=== PATIENT | female | born 1965 | race Caucasian/White ===

== ENCOUNTER → 2020-12-13 15:27 | Outpatient (BNVA) | payer BC, SELFPAY | PROVIDERS: PCP Internal Medicine; Visit Provider Surgery ==

== ENCOUNTER 2021-01-11 10:37 | Outpatient (REF) | payer BC, SELFPAY ==
[2021-01-11 11:41] LABS: MANUAL DIFF FLAG NO
[2021-01-11 11:50] LABS: Basophils Percent Auto 0.5 % (0-2); Eosinophils Absolute Auto 0.1 X10*3/uL (0.0-0.4); Eosinophils Percent Auto 1.4 % (0-4); Hematocrit 39.3 % (37-47); Hemoglobin 12.2 g/dl (12.0-16.0); Imm Gran Abs Auto 0.01 X10*3/uL (0.00-0.03); Imm Gran Pct Auto 0.2 % (0.0-0.4); Lymphocytes Absolute Auto 1.8 X10*3/uL (1.2-4.9); Lymphocytes Percent Auto 31.6 % (20-40); Mean Corpuscular Hemoglobin 30.4 pg (27.0-33.0); Mean Platelet Volume 11.6 fL (9.4-12.3); Monocytes Absolute Auto 0.4 X10*3/uL (0.1-1.2); Monocytes Percent Auto 6.3 % (2-11); Neutrophils Absolute Auto 3.5 X10*3/uL (2.0-8.3); Platelet Count 255 X10*3/uL (160-400); Red Blood Count 4.01 X10*6/uL (4.20-5.50); Red Cell Distribution Width 13.7 % (11.0-16.0); White Blood Count 5.8 X10*3/uL (4.8-10.8)
[2021-01-11 12:27] LABS: Thyroid Stimulating Hormone 0.77 uIU/mL (0.32-4.0); Vitamin D 25-OH Total 43.6 ng/mL (>30)
[2021-01-11 12:31] LABS: Alanine Aminotransferase 7 U/L (0-31); Alkaline Phosphatase 96 U/L (39-117); Anion Gap 14 (12-20); Aspartate Amino Transferase 17 U/L (5-31); Bilirubin Total 0.5 mg/dL (0.0-1.0); Blood Urea Nitrogen 35 mg/dL (9-16); C Reactive Protein 0.74 mg/dL (< or = 0.50); Calcium 9.6 mg/dL (8.4-10.2); Carbon Dioxide 24 mmol/L (22-29); Chloride 107 mmol/L (96-108); Cholesterol 223 mg/dL; Estimated Glomerular Filt Rate 41; Glucose Fasting 90 mg/dL (60-99); HDL Cholesterol 45 mg/dL; Iron 77 mcg/dL (30-160); LDL Cholesterol Calculated 114 mg/dl; Percent Iron Saturation 24 % (15-50); Potassium 5.2 mmol/L (3.3-5.1); Sodium 140 mmol/L (135-145); Total Iron Binding Capacity 316 mcg/dL (228-428); Total Protein 7.4 g/dL (6.5-8.0); Triglycerides 324 mg/dL; Unsaturated Iron Binding 239 ug/dL
[2021-01-11 12:50] LABS: Estimated Average Glucose 91 mg/dL; Hemoglobin A1c % 4.8 %
[2021-01-11 12:58] LABS: Vitamin B12 721 pg/mL (200-900)
[2021-01-15 00:32] LABS: Zinc 111 mcg/dL (60-130)
[2021-01-15 11:37] LABS: Calcium (PTHI) 9.7 mg/dL (8.6-10.4); PTHI 35 pg/mL (14-64)
[2021-01-16 13:21] LABS: Vitamin A 80 mcg/dL (38-98)
[2021-01-18 12:46] LABS: Vitamin B1 26 nmol/L (8-30)
== END 2021-01-11 10:38 | disposition home or self-care (01) ==
LOC: HO.LAB 10:37
PROVIDERS: PCP Internal Medicine; Visit Provider Surgery
DX: Z01.818 Encounter for other preprocedural examination (principal); E66.3 Overweight; Z68.29 Body mass index [BMI] 29.0-29.9, adult; K91.2 Postsurgical malabsorption, not elsewhere classified; K56.609 Unspecified intestinal obstruction, unspecified as to partial versus complete obstruction; Z90.3 Acquired absence of stomach [part of]; Z98.84 Bariatric surgery status
CPT/HCPCS: 36415; 80053; 80061; 82306; 82607; 83036; 83540; 83970; 84425; 84443; 84590; 84630; 85025; 86140

== ENCOUNTER 2021-01-18 03:37 | Inpatient (IN) | payer BC, SELFPAY ==
[2021-01-18] VITALS (13 sets, daily range): BP systolic 109–151; BP diastolic 48–82; PULSE 56–81; RESP 16–20; TEMP 36–37; O2SAT 97–100; BMI 29.0
--- NOTE | 2021-01-18 04:07 | ED_ITS ---
HPI - General Adult General Chief complaint: General Medical Stated complaint: SURGERY COMPLICATIONS Time Seen by Provider: 01/18/21 04:00 Source: patient Mode of arrival: EMS Limitations: no limitations History of Present Illness HPI narrative: Patient is being transferred from [facility] for a small- bowel obstruction. Earlier this afternoon, I spoke with Dr. Acosta who took care of the patient, at [facility]. Mrs. Christianson is a patient of Dr. Cerna, who presented at local hospital complaining of diffuse abdominal pain. Patient has been diagnosed with a small-bowel obstruction, patient has krishna d 3 in total. Patient has history of gastric bypass surgery on 02/29/2020. It is suspected that the patient may have a hernia which is causing the small-bowel obstructions. Patient is scheduled for surgery this morning. I spoke to Dr. Cerna this evening, recommended to have the patient transferred to our facility for surgery this morning, repeat labs, no further imaging necessary. I accepted the ER to ER transfer. Patient states that at this moment, the pain is getting worse. Related Data Home Medications Medication Instructions Recorded Confirmed cetirizine 10 mg tablet 10 mg PO BEDTIME 12/13/20 01/11/21 docusate sodium 100 mg capsule 100 mg PO BID 12/13/20 01/11/21 fluconazole 150 mg tablet 150 mg PO PRN tab 12/13/20 01/11/21 gabapentin 300 mg capsule 300 mg PO BID 12/13/20 01/11/21 lisinopril 10 mg tablet 10 mg PO DAILY 12/13/20 01/11/21 polyethylene glycol 3350 17 17 g PO DAILY PRN 12/13/20 01/11/21 gram/dose oral powder propranolol 20 mg tablet 20 mg PO BID 12/13/20 01/11/21 tizanidine 4 mg tablet 4 mg PO BEDTIME 12/13/20 01/11/21 topiramate 50 mg tablet 50 mg PO BID 12/13/20 01/11/21 Allergies Allergy/AdvReac Type Severity Reaction Status Date / Time NSAIDS (Non-Steroidal Allergy Intermediate CANNOT USE Verified 01/11/21 12:45 Anti-Inflamma DUE TO [NSAIDS (NON-STEROIDAL GASTRIC ANTI-INFLAMMA] BYPASS SURGERY Review of Systems Review of Systems: Constitutional : No Weight loss, No Fever, No Chills, No Night Sweats, No Fatigue, No Malaise ENT/Mouth : No Hearing loss, No Ear Pain, No Nasal Congestion, No Sinus Pain, No Hoarseness, No sore throat, No Rhinorrhea, No Swallowing Difficulty Eyes: No Eye Pain, No Swelling, No Redness, No Foreign Body, No Discharge, No Vision Changes Cardiovascular : No Chest Pain, No SOB, No Dyspnea on Exertion, No Orthopnea, No Edema, No Palpitations Respiratory : No Cough, No Sputum, No Wheezing, No Smoke Exposure, No Dyspnea Gastrointestinal : Complaining of nausea, no vomiting or diarrhea, complaining of severe diffuse abdominal pain Genitourinary : no irregular bleeding, No Dysuria, No Urinary Frequency, No Hematuria, No Urinary Incontinence, No Urgency, No Flank Pain, No Urinary Flow Changes, No Hesitancy Musculoskeletal : No joint pain, No Myalgias, No Joint Swelling Skin : No Skin Lesions, No rash Neuro : No Weakness, No Numbness, No Paresthesias, No Loss of Consciousness, No Dizziness, No Headache Psych : No Anxiety/Panic, No Depression, No SI/HI/AH/VH, No Social Issues, Heme/Lymph: No Bruising, No Bleeding,No Lymphadenopathy Endocrine : No Polyuria, No Polydipsia, No Temperature Intolerance PMFSH Past Medical History Medical History BMI 29.0-29.9,adult Constipation Intermittent small bowel obstruction Malabsorption due to intolerance, not elsewhere classified Migraine headache Overweight (BMI 25.0-29.9) Polycystic kidney disease Surgical History History of gastric restrictive surgery History of knee replacement History of laparoscopic cholecystectomy History of release of tendon Hx of section S/P gastric bypass S/P laparoscopic sleeve gastrectomy Family History Family History Father Pre-diabetes Mother Polycystic kidney Kidney transplanted Sister Heart attack Brother Polycystic kidney Brother Heart problem Son No problems noted. Son Diabetes mellitus Social History Social History Alcohol intake: never Smoking Status: Never smoker Advance Directives: No Advance Directives Information Provided: No Physical Exam Vital Signs: Vital Signs: Last Vital Signs Temp 98 F 01/18/21 03:51 Pulse 60 01/18/21 03:51 Resp 16 01/18/21 03:51 BP 109/48 L 01/18/21 03:51 Pulse Ox 99 01/18/21 03:51 Body Mass Index 29.0 Appearance: Alert. Oriented X3. Mild distress due to pain Eyes: Pupils equal, round and reactive to light. ENT: Pharynx normal. Neck: Normal inspection. Neck supple. No lymph nodes noted. No crepitus CVS: Normal heart rate and rhythm. Pulses normal. Normal S1 and S2 Respiratory: No respiratory distress. Breath sounds normal. No Wheezing. No rales Abdomen: Soft distended, diffusely tender, guarding, no rebound Skin: Skin warm and dry. Normal skin color. Normal skin turgor. Extremities: No lower extremity edema.No Lacerations. No Rash Neuro: Oriented X 3. No motor deficit. No sensory deficit. Moving all extermities. No slurred speech. Course Course Course Narrative: Patient's labs from [facility] were sent to us, stable. We are repeating blood work for this morning's surgery. I spoke to bariatric surgeon on-call, KANDACE Lei, patient being admitted. Medical Decision Making Lab Data Result diagrams: 01/18/21 04:41 01/18/21 04:40 Labs: Lab Results 01/18/21 01/18/21 01/18/21 Range/Units 04:40 04:41 04:41 WBC 5.6 (4.8-10.8) X10*3/uL RBC 3.26 L (4.20-5.50) X10*6/uL Hgb 10.0 L (12.0-16.0) g/dl Hct 31.6 L (37-47) % MCV 96.9 (80-98) fL MCH 30.7 (27.0-33.0) pg MCHC 31.6 (31.0-35.0) g/dl RDW 13.9 (11.0-16.0) % Plt Count 130 L D (160-400) X10*3/uL MPV 11.1 (9.4-12.3) fL Immature Gran % (Auto) 0.2 (0.0-0.4) % Neut % (Auto) 55.0 (45-73) % Lymph % (Auto) 37.2 (20-40) % Millard % (Auto) 6.1 (2-11) % Eos % (Auto) 1.1 (0-4) % Baso % (Auto) 0.4 (0-2) % Lymph # (Auto) 2.1 (1.2-4.9) X10*3/uL Millard # (Auto) 0.3 (0.1-1.2) X10*3/uL Eos # (Auto) 0.1 (0.0-0.4) X10*3/uL Baso # (Auto) 0.0 (0.0-0.2) X10*3/uL Abs Immat Gran (auto) 0.01 (0.00-0.03) X10*3/uL Absolute Neuts (auto) 3.1 (2.0-8.3) X10*3/uL Absolute Nucleated RBC 0.000 (0.0-0.012) X10*3/uL Nucleated RBC % (auto) 0.0 (0.0-0.2) /100WBC Smear Tech's Comments VERIFIED PT 13.0 (10.8-13.0) SEC INR 1.1 (0.9-1.1) APTT 33.8 (24.1-38.0) SEC ECG Data Attestation: I personally reviewed and interpreted this ECG as follows: (Sinus rhythm, heart rate 57, no ST segment depression or elevation, no T-wave inversion) Discharge Plan Discharge Clinical Impression: SBO (small bowel obstruction) Patient Disposition: Admitted As Inpatient
--- NOTE | 2021-01-18 04:15 | ECG_ITS ---
Test Reason : SURGERY Blood Pressure : / mmHG Vent. Rate : 057 BPM Atrial Rate : 059 BPM P-R Int : 000 ms QRS Dur : 078 ms QT Int : 474 ms P-R-T Axes : 000 017 018 degrees QTc Int : 461 ms Normal sinus rhythm Low amplitude p waves Low voltage QRS Abnormal ECG When compared to the previous EKG of No significant changes seen Referred By: Nydia Flores Electronically Signed By:ELI VERDUGO MD
[2021-01-18] MEDS: 0.9 % Sodium Chloride 1,000 ML 999 ML IVCONT (04:21)
[2021-01-18] MEDS: ondansetron HCL 4 MG/2 ML VIAL IVPUSH ×2 (04:21→17:15)
[2021-01-18] MEDS: HYDROmorphone HCl 1 MG/ML SYRINGE IVPUSH (04:21)
--- NOTE | 2021-01-18 04:47 | PM.HPGS ---
History of Present Illness History of Present Illness Date of Service: 01/18/21 Chief complaint: SURGERY COMPLICATIONS Narrative: Lucila Christianson is a 55 year old female who is s/p revision of RNYGBP by Dr Cerna in February 2020, her origianl RNYGBP was done in 2013 elsewhere. Pt had been having an uncomplicated post op course until earlier this month when she began to have intermittent abd pain and was hospitalized twice in [facility] for SBO's that resolved on their own. she was seen in the [facility] office for followup and scheduled for elective laparoscopic exploration on January 30 for probable internal hernia. Patient called the office from her home in [place] today stating she had the same symptoms. Abd pain started suddenly at 1:30 pm with an episode of emesis ox 1. No Bm's x 2 days and no flatus per patient. She arrived at ED close to her home in [place], was stabilized and brought to [facility] ED for admission. She is scheduled for OR today with Dr Cerna. Review of Systems ENT: Denies dysphagia Gastrointestinal: Gastrointestinal: Reports as per HPI, Reports abdominal pain, Reports belching, Denies coffee ground emesis, Denies dysphagia, Denies nausea, Reports vomiting (x 1) and Denies hematemesis PMFSH Past Medical History Medical History BMI 29.0-29.9,adult Constipation Intermittent small bowel obstruction Malabsorption due to intolerance, not elsewhere classified Migraine headache Overweight (BMI 25.0-29.9) Polycystic kidney disease Family History Family History Father Pre-diabetes Mother Polycystic kidney Kidney transplanted Sister Heart attack Brother Polycystic kidney Brother Heart problem Son No problems noted. Son Diabetes mellitus Surgical History Surgical History History of gastric restrictive surgery History of knee replacement History of laparoscopic cholecystectomy History of release of tendon Hx of section S/P gastric bypass S/P laparoscopic sleeve gastrectomy Social History Social History Alcohol intake: never Smoking Status: Never smoker Advance Directives: No Advance Directives Information Provided: No Meds Allergies Allergy/AdvReac Type Severity Reaction Status Date / Time NSAIDS (Non-Steroidal Allergy Intermediate CANNOT USE Verified 01/11/21 12:45 Anti-Inflamma DUE TO [NSAIDS (NON-STEROIDAL GASTRIC ANTI-INFLAMMA] BYPASS SURGERY Active Medications: Current Medications Generic Name Dose Route Start Last Admin Trade Name Freq PRN Reason Stop Dose Admin Sodium Chloride 1,000 mls @ 999 mls/hr 01/18/21 04:11 01/18/21 04:21 Ns IVCONT 01/18/21 05:11 999 mls/hr .Q1H1M ONE Administration Home Medications Medication Instructions Recorded Confirmed Last Taken Type cetirizine 10 mg tablet 10 mg PO BEDTIME 12/13/20 01/11/21 Unknown History docusate sodium 100 mg capsule 100 mg PO BID 12/13/20 01/11/21 Unknown History fluconazole 150 mg tablet 150 mg PO PRN tab 12/13/20 01/11/21 Unknown History gabapentin 300 mg capsule 300 mg PO BID 12/13/20 01/11/21 Unknown History lisinopril 10 mg tablet 10 mg PO DAILY 12/13/20 01/11/21 Unknown History polyethylene glycol 3350 17 17 g PO DAILY PRN 12/13/20 01/11/21 Unknown History gram/dose oral powder propranolol 20 mg tablet 20 mg PO BID 12/13/20 01/11/21 Unknown History tizanidine 4 mg tablet 4 mg PO BEDTIME 12/13/20 01/11/21 Unknown History topiramate 50 mg tablet 50 mg PO BID 12/13/20 01/11/21 Unknown History Physical Exam Vital Signs: Vital Signs: Last Vital Signs Temp 98 F 01/18/21 03:51 Pulse 60 01/18/21 03:51 Resp 16 01/18/21 03:51 BP 109/48 L 01/18/21 03:51 Pulse Ox 99 01/18/21 03:51 Body Mass Index 29.[address] scan report/results: report reviewed (CT abd done previously have been reviewed br Dr Cerna) Assessment and Plan (1) Intermittent small bowel obstruction: Status: Acute (2) S/P gastric bypass: Problem details: 2013 Status: Acute (3) Malabsorption due to intolerance, not elsewhere classified: Status: Acute (4) Hx of migraines: Status: Acute (5) BMI 29.0-29.9,adult: Status: Acute 55 yo woman s/p revision of GBP February 2020 is being admitted fro intermittent small bowel obstruction likely from internal hernia. She will be NPO on admission and will go to OR today. Labs drawn in ED and cefotetan ordered pre op. Dr Cerna is aware.
[2021-01-18 04:51] LABS: Imm Gran Abs Auto 0.01 X10*3/uL (0.00-0.03); Imm Gran Pct Auto 0.2 % (0.0-0.4); MANUAL DIFF FLAG SCAN; Mean Platelet Volume 11.1 fL (9.4-12.3); PLT CLUMP 1; SCAN SMEAR FLAG 1
[2021-01-18 04:53] LABS: Basophils Percent Auto 0.4 % (0-2); Eosinophils Absolute Auto 0.1 X10*3/uL (0.0-0.4); Eosinophils Percent Auto 1.1 % (0-4); Hematocrit 31.6 % (37-47); Lymphocytes Absolute Auto 2.1 X10*3/uL (1.2-4.9); Lymphocytes Percent Auto 37.2 % (20-40); Mean Corpuscular HGB Conc 31.6 g/dl (31.0-35.0); Mean Corpuscular Hemoglobin 30.7 pg (27.0-33.0); Mean Corpuscular Volume 96.9 fL (80-98); Monocytes Absolute Auto 0.3 X10*3/uL (0.1-1.2); Monocytes Percent Auto 6.1 % (2-11); Neutrophils Absolute Auto 3.1 X10*3/uL (2.0-8.3); Platelet Count 130 X10*3/uL (160-400); Red Blood Count 3.26 X10*6/uL (4.20-5.50); Red Cell Distribution Width 13.9 % (11.0-16.0); White Blood Count 5.6 X10*3/uL (4.8-10.8)
[2021-01-18 04:55] LABS: SLIDE REVIEW VERIFIED
[2021-01-18 04:57] LABS: INTERNATIONAL NORM RATIO 1.1 (0.9-1.1)
[2021-01-18 04:59] LABS: Partial Thromboplastin Time 33.8 SEC (24.1-38.0)
[2021-01-18 05:09] LABS: Lactic Acid 1.4 mmol/L (0.5-2.0)
[2021-01-18 05:14] LABS: Alanine Aminotransferase 6 U/L (0-31); Albumin Level 3.5 g/dL (3.5-5.0); Alkaline Phosphatase 86 U/L (39-117); Anion Gap 12 (12-20); Aspartate Amino Transferase 18 U/L (5-31); Bilirubin Direct < 0.2 mg/dL (0.0-0.5); Bilirubin Total 0.4 mg/dL (0.0-1.0); Blood Urea Nitrogen 28 mg/dL (9-16); Calcium 8.9 mg/dL (8.4-10.2); Carbon Dioxide 23 mmol/L (22-29); Chloride 109 mmol/L (96-108); Creatinine Clr Calc Pharmacy 57.2; Estimated Glomerular Filt Rate 48; Glucose Random 93 mg/dL (60-115); Potassium 4.4 mmol/L (3.3-5.1); Sodium 140 mmol/L (135-145); Total Protein 6.3 g/dL (6.5-8.0)
[2021-01-18] MEDS: Lactated Ringers 1,000 ML 125 ML IVCONT ×2 (05:39→18:01)
[2021-01-18] MEDS: HYDROmorphone HCl 0.5 MG/0.5 ML SYRINGE 0.25 MG IVPUSH ×2 (05:39→15:22)
[2021-01-18] MEDS: cefoTEtan disodium 2 GM in 0.9 % Sodium Chloride 50 ML IV (06:07)
--- NOTE | 2021-01-18 06:22 | PC.NURSE ---
REPORT GIVEN TO [facility]. PT TO FLOOR AT THIS TIME. LR UP AND RUNNING ON PUMP. HL REMOVED FROM LEFT AC AND REPLACED TO RIGHT FA. PT MEDICATED FOR PAIN RATED 8/10. PT AWAITING TRANSFER TO FLOOR ON STRETCHER.
[2021-01-18 06:53] LABS: COVID-19 Test Negative (Negative); IDNOW Serial# 9DD0AD1C
[2021-01-18] MEDS: Pantoprazole Sodium 40 MG/10 ML VIAL IVPUSH ×2 (07:26→20:55)
[2021-01-18 07:45] LABS: Lactic Acid 0.9 mmol/L (0.5-2.0)
--- NOTE | 2021-01-18 09:09 | PM.HPGS ---
History of Present Illness History of Present Illness Date of Service: 01/18/21 Chief complaint: ABDOMIANAL PAIN Narrative: Lucila Christianson is a 55 year old female who has a history of gastric bypass done at [facility] in 2004. I did a revision of her gastric bypass 02/29/2020 when she was noted to have a very large gastric pouch and had gained a significant amount of weight. Patient has since then lost 81 lb. Patient reports 2 prior episodes of hospitalization for small-bowel obstructions in December of 2020. First admission was 12/21/2020 and she was admitted to [facility] in [place] and underwent conservative management for her bowel obstruction with NPO and IV fluids and eventually advancing her diet. Patient was discharged but about 4 days later she re-presented to [facility] with similar symptoms. This time she was transferred out to [facility] again the CT scan showed small bowel obstruction and she was treated conservatively for 5 days. Her diet was advanced and she was again discharged home. Patient followed up in our office and the plan was for her to see me next week to do a diagnostic laparoscopy to evaluate for internal hernia given her history of gastric bypass and 80 lb weight loss in less than 1 year after revision of her gastric bypass. Patient reports yesterday after eating chicken noodle soup she developed severe umbilical pain greater than 10/10 in the periumbilical region. She denies any exacerbating or alleviating factors. She reports the pain radiates to the left lower quadrant. Patient reports she also tried chicken noodle soup once again last night at 18:00 and threw that up. Again she went to [facility] once again although she was told to come to [facility] for evaluation. Patient was transferred here to [facility] last evening. Patient had normal white blood cell count and electrolytes and lactic acid. We did not repeat a CT scan as she has 2 CT scans that showed small bowel obstruction when she was admitted those 2 previous times. Patient denies any fever, chills, shortness of breath, chest pain. Patient reports her last episode of vomiting was in the emergency department last night at 10 p.m.. She continues to have nausea but no further vomiting. She reports that she has not had a bowel movement or passed flatus in the past 2 days. Review of Systems Review of Systems: Yes all other systems are reviewed and are negative Constitutional: Constitutional: Denies chills, Denies daytime sleepiness, Reports difficulty sleeping, Denies excessive sweating, Denies fatigue, Denies fever(s), Denies headache(s), Denies night sweats, Denies snoring, Denies stops breathing during sleep and Denies weakness Eyes: Eyes: Denies blurry vision, Denies other visual disturbances and Reports requires corrective lenses ENT: Reports Normal hearing present, Denies bleeding gums, Denies dysphagia, Denies dizziness, Denies headache(s), Denies hearing loss, Denies sinus pain and Denies sore throat Cardiovascular: Cardiovascular: Denies chest pain, Denies chest pain at rest, Denies chest pain with activity, Denies syncope, Denies irregular heart rhythm, Denies leg edema, Denies lightheadedness, Denies dyspnea, Denies dyspnea on exertion and Denies orthopnea Respiratory: Respiratory: Denies chest congestion, Denies cough, Denies dyspnea, Denies dyspnea on exertion, Denies snoring and Denies wheezing Gastrointestinal: Gastrointestinal: Reports abdominal pain (Periumbilical radiating to left lower quadrant), Reports belching, Denies melena, Denies bloating, Reports change in bowel habits, Reports constipation, Denies dysphagia, Reports dyspepsia, Denies heartburn, Denies diarrhea, Reports nausea and Reports vomiting Genitourinary: Genitourinary: Denies hematuria, Denies nocturia and Denies nipple discharge Musculoskeletal: Musculoskeletal: Denies abnormal gait, Reports back pain, Denies deformity, Reports arthralgias, Denies joint swelling and Denies stiffness Integumentary/Breasts: Skin/Breast: Denies breast pain, Denies breast mass and Denies nipple discharge Neurologic: Reports Normal hearing present, Denies abnormal gait, Denies confusion, Denies dizziness, Denies syncope, Denies headache(s), Denies seizure-like activity and Denies weakness Psychiatric: Psychiatric: Denies abnormal sleep pattern, Denies anxiety, Denies confusion, Denies depression and Denies panic attacks Endocrine: Endocrine: Denies excessive sweating, Denies fatigue, Denies heat intolerance, Denies polyphagia, Denies polydipsia and Denies polyuria Hematologic/Lymphatic: Hematologic/Lymphatic: Denies easy bleeding and Denies easy bruising Allergic/Immunologic: Allergic/Immunologic: Denies wheezing PMFSH Past Medical History Medical History BMI 29.0-29.9,adult Constipation Intermittent small bowel obstruction Malabsorption due to intolerance, not elsewhere classified Migraine headache Overweight (BMI 25.0-29.9) Polycystic kidney disease Family History Family History Father Pre-diabetes Mother Polycystic kidney Kidney transplanted Sister Heart attack Brother Polycystic kidney Brother Heart problem Son No problems noted. Son Diabetes mellitus Surgical History Surgical History History of gastric restrictive surgery History of knee replacement History of laparoscopic cholecystectomy History of release of tendon Hx of section S/P gastric bypass Social History Social History Household Members: Family Housing: House Do you presently have visiting nurse or other home services: No Alcohol intake: never Smoking Status: Never smoker Smoked in Last 30 Days: No Use of substances other than those prescribed or required for medical reasons: No Currently Displaying Signs/Symptoms of Drug Intoxication Withdrawal: No Have you been hit, kicked, punched, or otherwise hurt by someone within the past year? If so, by whom?: No Do you feel safe in your current relationship?: Yes Is there a partner from a previous relationship who is making you feel unsafe now?: No Are you made to feel afraid or neglected: No Advance Directives: No Advance Directives Information Provided: No Do you have thoughts of harming others: None Do you have a plan to hurt others: No Plan Recently lost weight without trying: No Meds Allergies Allergy/AdvReac Type Severity Reaction Status Date / Time NSAIDS (Non-Steroidal Allergy Intermediate CANNOT USE Verified 01/11/21 12:45 Anti-Inflamma DUE TO [NSAIDS (NON-STEROIDAL GASTRIC ANTI-INFLAMMA] BYPASS SURGERY Active Medications: Current Medications Generic Name Dose Route Start Last Admin Trade Name Freq PRN Reason Stop Dose Admin Hydromorphone HCl 0.25 mg 01/18/21 04:53 01/18/21 05:39 Hydromorphone Hcl 0.5 Mg/0.5 Ml Syringe IVPUSH 0.25 mg Q4H PRN Administration Pain, Moderate (Pain Scale 4-6 Lactated Ringer's 1,000 mls @ 125 mls/hr 01/18/21 04:53 01/18/21 05:39 Lr IVCONT 125 mls/hr .Q8H ARLETH Administration Ondansetron HCl 4 mg 01/18/21 04:53 01/18/21 05:18 Ondansetron Hcl 4 Mg/2 Ml Vial IVPUSH Not Given Q8H ARLETH Pantoprazole Sodium 40 mg 01/18/21 09:00 01/18/21 07:26 Pantoprazole Sodium 40 Mg/10 Ml Vial IVPUSH 40 mg BID ARLETH Administration Sodium Chloride 3 ml 01/18/21 08:00 01/18/21 07:12 0.9 % Sodium Chloride Flush 3 Ml Syringe IVFLUSH Not Given QSHIFT [facility] Home Medications Medication Instructions Recorded Confirmed Last Taken Type cetirizine 10 mg tablet 10 mg PO BEDTIME 12/13/20 01/18/21 01/17/21 History gabapentin 300 mg capsule 300 mg PO BID 12/13/20 01/18/21 01/17/21 History lisinopril 10 mg tablet 10 mg PO DAILY 12/13/20 01/18/21 01/17/21 History polyethylene glycol 3350 17 17 g PO DAILY PRN 12/13/20 01/18/21 Unknown History gram/dose oral powder propranolol 20 mg tablet 20 mg PO BID 12/13/20 01/18/21 01/17/21 History tizanidine 4 mg tablet 4 mg PO BEDTIME 12/13/20 01/18/21 01/17/21 History topiramate 50 mg tablet 50 mg PO BID 12/13/20 01/18/21 01/17/21 History Physical Exam Vital Signs: Vital Signs: Last Vital Signs Temp 97.9 F 01/18/21 07:36 Pulse 56 01/18/21 07:36 Resp 18 01/18/21 07:36 BP 112/63 01/18/21 07:36 Pulse Ox 98 01/18/21 07:36 Body Mass Index 29.0 Const: General: cooperative, healthy appearing, well developed and acute distress (Crying in bed) moderate; No confusion Nutritional Appearance: average body habitus, well nourished and obese Orientation/consciousness: patient oriented x3 and No confusion HENMT: Other: Wearing glasses Head: Yes normal to inspection, Yes normocephalic and Yes atraumatic Ears: hearing grossly normal bilaterally Mouth: Normal oral and palatal mucosa present Teeth and gingiva: dentition normal Throat: Yes posterior oropharynx normal Eyes: General: appearance normal, both eyes and all related structures Eyelids: Yes eyelids normal EOM: EOMs intact bilaterally Neck: Neck: Yes normal visual inspection, Yes full ROM, Yes trachea midline and Yes no JVD Thyroid: Thyroid normal Lymphatic: no lymphadenopathy noted Resp: Effort & Inspection: normal respiratory effort and able to speak in complete sentences Auscultation: clear to auscultation bilaterally Cardio: Jugular venous distension: no JVD Rate: regular rate Heart sounds: S1 normal heart sound present, S2 normal heart sound present, no click, no gallops and no murmurs GI: Other: Distended Inspection: Yes normal to inspection, No distended, No incision, Yes Abdominal panniculus present and Yes obesity Palpation (GI): Soft to palpation, Tenderness to palpation present (GI) (Diffusely), Guarding due to palpation present (GI) (Voluntary with palpation), not rigid, No hepatosplenomegaly present, no hernias and no masses Percussion: Yes normal to percussion Rectal Exam - Female: deferred Skin: Rashes: no rashes Trauma: no lacerations or abrasions Neuro: General: patient oriented x3 and No confusion Cranial nerves: Yes Normal hearing present Extrem: General: Yes normal to inspection, Yes full ROM, Yes no clubbing, cyanosis or edema and Yes no calf tenderness Results Results Labs: Short CBC 01/18/21 Range/Units 04:41 WBC 5.6 (4.8-10.8) X10*3/uL Hgb 10.0 L (12.0-16.0) g/dl Hct 31.6 L (37-47) % Plt Count 130 L D (160-400) X10*3/uL BMP 01/18/21 04:40 Sodium 140 Potassium 4.4 Chloride 109 H Carbon Dioxide 23 BUN 28 H Creatinine 1.18 Calcium 8.9 D Liver Function 01/18/21 Range/Units 04:40 Total Bilirubin 0.4 (0.0-1.0) mg/dL Direct Bilirubin < 0.2 (0.0-0.5) mg/dL AST 18 (5-31) U/L ALT 6 (0-31) U/L Alkaline Phosphatase 86 (39-117) U/L Albumin 3.5 (3.5-5.0) g/dL Assessment and Plan (1) Intermittent small bowel obstruction: Status: Acute This is a 55-year-old lady with 2 admissions earlier this month for small-bowel obstruction and history of gastric bypass. Patient likely has an internal hernia that has intermittent bowel obstruction associated with it. Patient presented overnight with similar symptoms. She was admitted here and will be taken to the operating room for diagnostic laparoscopy with repair of internal hernia if 1 is found. I have discussed risks benefits and alternatives with the patient she agrees to proceed. I spent 1 hour of time with this patient performing history and physical examination reviewing laboratory work reviewing previous records from 2 hospitalizations prior and documenting. (2) S/P gastric bypass: Problem details: 2013 Status: Acute
--- NOTE | 2021-01-18 09:25 | P.CONAN_ITS ---
[facility] Active Problems Active Problems: All Active Problems (Updated 01/18/21 @ 05:00 by Do turner PA-C) Intermittent small bowel obstruction (Acute) S/P gastric bypass (Acute) Malabsorption due to intolerance, not elsewhere classified (Acute) Hx of migraines (Acute) BMI 29.0-29.9,adult (Acute) SBO (small bowel obstruction) (Acute) Overweight (BMI 25.0-29.9) (Acute) S/P laparoscopic sleeve gastrectomy (Acute) Intestinal malabsorption following gastrectomy (Acute) Past Medical History Medical History BMI 29.0-29.9,adult Constipation Intermittent small bowel obstruction Malabsorption due to intolerance, not elsewhere classified Migraine headache Overweight (BMI 25.0-29.9) Polycystic kidney disease Family History Family History Father Pre-diabetes Mother Polycystic kidney Kidney transplanted Sister Heart attack Brother Polycystic kidney Brother Heart problem Son No problems noted. Son Diabetes mellitus Surgical History Surgical History History of gastric restrictive surgery History of knee replacement History of laparoscopic cholecystectomy History of release of tendon Hx of section S/P gastric bypass S/P laparoscopic sleeve gastrectomy Social History Social History Household Members: Family Housing: House Do you presently have visiting nurse or other home services: No Alcohol intake: never Smoking Status: Never smoker Smoked in Last 30 Days: No Use of substances other than those prescribed or required for medical reasons: No Currently Displaying Signs/Symptoms of Drug Intoxication Withdrawal: No Have you been hit, kicked, punched, or otherwise hurt by someone within the past year? If so, by whom?: No Do you feel safe in your current relationship?: Yes Is there a partner from a previous relationship who is making you feel unsafe now?: No Are you made to feel afraid or neglected: No Advance Directives: No Advance Directives Information Provided: No Do you have thoughts of harming others: None Do you have a plan to hurt others: No Plan Recently lost weight without trying: No Meds Allergies Allergy/AdvReac Type Severity Reaction Status Date / Time NSAIDS (Non-Steroidal Allergy Intermediate CANNOT USE Verified 01/11/21 12:45 Anti-Inflamma DUE TO [NSAIDS (NON-STEROIDAL GASTRIC ANTI-INFLAMMA] BYPASS SURGERY Active Medications: Current Medications Generic Name Dose Route Start Last Admin Trade Name Joan PRN Reason Stop Dose Admin Hydromorphone HCl 0.25 mg 01/18/21 04:53 01/18/21 05:39 Hydromorphone Hcl 0.5 Mg/0.5 Ml Syringe IVPUSH 0.25 mg Q4H PRN Administration Pain, Moderate (Pain Scale 4-6 Lactated Ringer's 1,000 mls @ 125 mls/hr 01/18/21 04:53 01/18/21 05:39 Lr IVCONT 125 mls/hr .Q8H ARLETH Administration Ondansetron HCl 4 mg 01/18/21 04:53 01/18/21 05:18 Ondansetron Hcl 4 Mg/2 Ml Vial IVPUSH Not Given Q8H ARLETH Pantoprazole Sodium 40 mg 01/18/21 09:00 01/18/21 07:26 Pantoprazole Sodium 40 Mg/10 Ml Vial IVPUSH 40 mg BID ARLETH Administration Sodium Chloride 3 ml 01/18/21 08:00 01/18/21 07:12 0.9 % Sodium Chloride Flush 3 Ml Syringe IVFLUSH Not Given QSHIFT [facility] Home Medications Medication Instructions Recorded Confirmed Last Taken Type cetirizine 10 mg tablet 10 mg PO BEDTIME 12/13/20 01/18/21 01/17/21 History gabapentin 300 mg capsule 300 mg PO BID 12/13/20 01/18/21 01/17/21 History lisinopril 10 mg tablet 10 mg PO DAILY 12/13/20 01/18/21 01/17/21 History polyethylene glycol 3350 17 17 g PO DAILY PRN 12/13/20 01/18/21 Unknown History gram/dose oral powder propranolol 20 mg tablet 20 mg PO BID 12/13/20 01/18/21 01/17/21 History tizanidine 4 mg tablet 4 mg PO BEDTIME 12/13/20 01/18/21 01/17/21 History topiramate 50 mg tablet 50 mg PO BID 12/13/20 01/18/21 01/17/21 History Exam Exam Date and Time: January 18, 2021 0925 Height,Weight and Vital Signs: Height 5 ft 5 in Weight 79 kg Last Vital Signs Temp 97.0 F 01/18/21 09:14 Pulse 58 01/18/21 09:14 Resp 18 01/18/21 09:14 BP 139/71 01/18/21 09:14 Pulse Ox 98 01/18/21 09:14 Pertinent Lab Results Pertinent Lab Results: Laboratory Tests 01/18/21 01/18/21 01/18/21 04:40 04:40 04:40 WBC RBC Hgb Hct MCV MCH MCHC RDW Plt Count MPV Immature Gran % (Auto) Neut % (Auto) Lymph % (Auto) [place] % (Auto) Eos % (Auto) Baso % (Auto) Lymph # (Auto) [place] # (Auto) Eos # (Auto) Baso # (Auto) Abs Immat Gran (auto) Absolute Neuts (auto) Absolute Nucleated RBC Nucleated RBC % (auto) Smear Tech's Comments PT 13.0 INR 1.1 APTT Sodium 140 Potassium 4.4 Chloride 109 H Carbon Dioxide 23 Anion Gap 12 BUN 28 H Creatinine 1.18 Estim Creat Clear Calc 57.2 Estimated GFR 48 Random Glucose 93 Lactic Acid 1.4 Calcium 8.9 D Total Bilirubin 0.4 Direct Bilirubin < 0.2 AST 18 ALT 6 Alkaline Phosphatase 86 Total Protein 6.3 L Albumin 3.5 COVID-19 (AMDELYN) COVID-19 Clin Com Blood Type Antibody Screen 01/18/21 01/18/21 01/18/21 04:41 04:41 04:48 WBC 5.6 RBC 3.26 L Hgb 10.0 L Hct 31.6 L MCV 96.9 MCH 30.7 MCHC 31.6 RDW 13.9 Plt Count 130 L D MPV 11.1 Immature Gran % (Auto) 0.2 Neut % (Auto) 55.0 Lymph % (Auto) 37.2 [place] % (Auto) 6.1 Eos % (Auto) 1.1 Baso % (Auto) 0.4 Lymph # (Auto) 2.1 [place] # (Auto) 0.3 Eos # (Auto) 0.1 Baso # (Auto) 0.0 Abs Immat Gran (auto) 0.01 Absolute Neuts (auto) 3.1 Absolute Nucleated RBC 0.000 Nucleated RBC % (auto) 0.0 Smear Tech's Comments VERIFIED PT INR APTT 33.8 Sodium Potassium Chloride Carbon Dioxide Anion Gap BUN Creatinine Estim Creat Clear Calc Estimated GFR Random Glucose Lactic Acid Calcium Total Bilirubin Direct Bilirubin AST ALT Alkaline Phosphatase Total Protein Albumin COVID-19 (MADELYN) COVID-19 Clin Com Blood Type A Positive Antibody Screen NEGATIVE 01/18/21 01/18/21 06:33 07:11 WBC RBC Hgb Hct MCV MCH MCHC RDW Plt Count MPV Immature Gran % (Auto) Neut % (Auto) Lymph % (Auto) [place] % (Auto) Eos % (Auto) Baso % (Auto) Lymph # (Auto) [place] # (Auto) Eos # (Auto) Baso # (Auto) Abs Immat Gran (auto) Absolute Neuts (auto) Absolute Nucleated RBC Nucleated RBC % (auto) Smear Tech's Comments PT INR APTT Sodium Potassium Chloride Carbon Dioxide Anion Gap BUN Creatinine Estim Creat Clear Calc Estimated GFR Random Glucose Lactic Acid 0.9 Calcium Total Bilirubin Direct Bilirubin AST ALT Alkaline Phosphatase Total Protein Albumin COVID-19 (MADELYN) Negative COVID-19 Clin Com See Note Blood Type Antibody Screen Airway Mallampati Class: II TM Dist: >3cm Neck ROM: Full Assessment and Plan Assessment Anesthesia Assessment: Anesthesia Plan Discussed and Chart Reviewed Final Anesthetic Review NPO: Yes ASA Class: II and Emergency Final Preanesthetic Review: No Changes in Pt Med Stat, Meds/Allgs Chart Reviewed, Consent Obtained/Reviewed and Anes Risks/Benef Reviewed Patient Risk: Intermediate Procedure Risk: Low Assessment/Block/Sedation in SS: Assess/Block/Sedation-SS Anesthetic Plan Anesthetic Plan: GA Disposition: Standard PACU
--- NOTE | 2021-01-18 10:52 | PM.PNGS ---
Subjective Subjective Date of Service: 01/19/21 Interval history: Patient feels much better than yesterday, has been tolerating po liquids well. Has passed gas. Physical Exam Vital Signs: Vital Signs: Last Vital Signs Temp 97.0 F 01/18/21 09:14 Pulse 58 01/18/21 09:14 Resp 18 01/18/21 09:14 BP 139/71 01/18/21 09:14 Pulse Ox 98 01/18/21 09:14 Body Mass Index 29.0 Const: General: cooperative, comfortable and no acute distress GI: Palpation (GI): Soft to palpation, nontender, no guarding and not rigid Auscultation: normal bowel sounds Progress Note: A&P Assessment and plan (1) S/P gastric bypass: Problem details: 2013 Status: Acute (2) S/P hernia repair: Status: Acute (3) S/P laparoscopy: Status: Acute Assessment and Plan: - advance to regular diet (start soft, eggs/oatmeal) - if tolerates well, d/c later - discussed with Dr. Cerna Fall Risk Details Current Medications: Current Medications Generic Name Dose Route Start Last Admin Trade Name Freq PRN Reason Stop Dose Admin Fentanyl 50 mcg 01/18/21 09:26 Fentanyl Citrate/Pf 100 Mcg/2 Ml Vial IVPUSH Q5M PRN Pain, Severe (Pain Scale 7-10) Hydromorphone HCl 0.25 mg 01/18/21 04:53 01/18/21 05:39 Hydromorphone Hcl 0.5 Mg/0.5 Ml Syringe IVPUSH 0.25 mg Q4H PRN Administration Pain, Moderate (Pain Scale 4-6 Hydromorphone HCl 0.25 mg 01/18/21 10:46 Hydromorphone Hcl 0.5 Mg/0.5 Ml Syringe IVPUSH Q4H PRN Pain, Severe (Pain Scale 7-10) Lactated Ringer's 1,000 mls @ 125 mls/hr 01/18/21 04:53 01/18/21 05:39 Lr IVCONT 125 mls/hr .Q8H ARLETH Administration Lactated Ringer's 1,000 mls @ 20 mls/hr 01/18/21 09:30 Lr IVCONT .Q24H ARLETH Acetaminophen 1,000 mg in 100 mls @ 16.7 mls/hr 01/18/21 11:00 Ofirmev IV .Q6H ARLETH Ondansetron HCl 4 mg 01/18/21 04:53 01/18/21 05:18 Ondansetron Hcl 4 Mg/2 Ml Vial IVPUSH Not Given Q8H ARLETH Ondansetron HCl 4 mg 01/18/21 09:26 Ondansetron Hcl 4 Mg/2 Ml Vial IVPUSH ONCE PRN Nausea and Vomiting Pantoprazole Sodium 40 mg 01/18/21 09:00 01/18/21 07:26 Pantoprazole Sodium 40 Mg/10 Ml Vial IVPUSH 40 mg BID ARLETH Administration Sodium Chloride 3 ml 01/18/21 08:00 01/18/21 07:12 0.9 % Sodium Chloride Flush 3 Ml Syringe IVFLUSH Not Given QSHIFT ARLETH Time Spent With Patient Time: Total time spent is greater than 50% in coordination of care (as documented) at patient's floor/unit and/or counseling patient: Time with patient: 25 - 35 minutes
--- NOTE | 2021-01-18 10:52 | PM.DS ---
DS: Providers Provider Date of Service: 01/19/21 Date of admission: 01/18/21 04:53 Primary care physician: Unknown Physician DS: Diagnosis Discharge Diagnosis (1) Intermittent small bowel obstruction: Status: Acute (2) S/P gastric bypass: Status: Acute Problem details: 2013 DS: Medications Discharge Medications Home Medications: Home Medications Medication Instructions Recorded Confirmed cetirizine 10 mg tablet 10 mg PO BEDTIME 12/13/20 01/18/21 gabapentin 300 mg capsule 300 mg PO BID 12/13/20 01/18/21 lisinopril 10 mg tablet 10 mg PO DAILY 12/13/20 01/18/21 polyethylene glycol 3350 17 17 g PO DAILY PRN 12/13/20 01/18/21 gram/dose oral powder propranolol 20 mg tablet 20 mg PO BID 12/13/20 01/18/21 tizanidine 4 mg tablet 4 mg PO BEDTIME 12/13/20 01/18/21 topiramate 50 mg tablet 50 mg PO BID 12/13/20 01/18/21 DS: Summary Time Spent with Patient Time attestation: Total time spent providing and/or coordinating discharge services: Discharge coordination time: Greater than 30 minutes Physical Exam Vital Signs: Vital Signs: Last Vital Signs Temp 97.0 F 01/18/21 09:14 Pulse 58 01/18/21 09:14 Resp 18 01/18/21 09:14 BP 139/71 01/18/21 09:14 Pulse Ox 98 01/18/21 09:14 Body Mass Index 29.0 DS: Data Data Completed and Pending Labs on day of discharge: Laboratory Results - last 24 hr 01/18/21 01/18/21 01/18/21 04:40 04:40 04:40 WBC RBC Hgb Hct MCV MCH MCHC RDW Plt Count MPV Immature Gran % (Auto) Neut % (Auto) Lymph % (Auto) [place] % (Auto) Eos % (Auto) Baso % (Auto) Lymph # (Auto) [place] # (Auto) Eos # (Auto) Baso # (Auto) Abs Immat Gran (auto) Absolute Neuts (auto) Absolute Nucleated RBC Nucleated RBC % (auto) Smear Tech's Comments PT 13.0 INR 1.1 APTT Sodium 140 Potassium 4.4 Chloride 109 H Carbon Dioxide 23 Anion Gap 12 BUN 28 H Creatinine 1.18 Estim Creat Clear Calc 57.2 Estimated GFR 48 Random Glucose 93 Lactic Acid 1.4 Calcium 8.9 D Total Bilirubin 0.4 Direct Bilirubin < 0.2 AST 18 ALT 6 Alkaline Phosphatase 86 Total Protein 6.3 L Albumin 3.5 COVID-19 (MADELYN) COVID-19 [employer] Com Blood Type Antibody Screen 01/18/21 01/18/21 01/18/21 04:41 04:41 04:48 WBC 5.6 RBC 3.26 L Hgb 10.0 L Hct 31.6 L MCV 96.9 MCH 30.7 MCHC 31.6 RDW 13.9 Plt Count 130 L D MPV 11.1 Immature Gran % (Auto) 0.2 Neut % (Auto) 55.0 Lymph % (Auto) 37.2 [place] % (Auto) 6.1 Eos % (Auto) 1.1 Baso % (Auto) 0.4 Lymph # (Auto) 2.1 [place] # (Auto) 0.3 Eos # (Auto) 0.1 Baso # (Auto) 0.0 Abs Immat Gran (auto) 0.01 Absolute Neuts (auto) 3.1 Absolute Nucleated RBC 0.000 Nucleated RBC % (auto) 0.0 Smear Tech's Comments VERIFIED PT INR APTT 33.8 Sodium Potassium Chloride Carbon Dioxide Anion Gap BUN Creatinine Estim Creat Clear Calc Estimated GFR Random Glucose Lactic Acid Calcium Total Bilirubin Direct Bilirubin AST ALT Alkaline Phosphatase Total Protein Albumin COVID-19 (MADELYN) COVID-[facility] Blood Type A Positive Antibody Screen NEGATIVE 01/18/21 01/18/21 06:33 07:11 WBC RBC Hgb Hct MCV MCH MCHC RDW Plt Count MPV Immature Gran % (Auto) Neut % (Auto) Lymph % (Auto) [place] % (Auto) Eos % (Auto) Baso % (Auto) Lymph # (Auto) [place] # (Auto) Eos # (Auto) Baso # (Auto) Abs Immat Gran (auto) Absolute Neuts (auto) Absolute Nucleated RBC Nucleated RBC % (auto) Smear Tech's Comments PT INR APTT Sodium Potassium Chloride Carbon Dioxide Anion Gap BUN Creatinine Estim Creat Clear Calc Estimated GFR Random Glucose Lactic Acid 0.9 Calcium Total Bilirubin Direct Bilirubin AST ALT Alkaline Phosphatase Total Protein Albumin COVID-19 (MADELYN) Negative COVID-19 [facility] Audit See Note Blood Type Antibody Screen Discharge Plan Discharge Anticipated Discharge Date/Time: 01/19/21 18:00 Patient Disposition: Home, Self-Care Discharge Diagnosis: intermittent SBO s/p laparoscopic internal hernia repair Referrals: Physician,Unknown [Primary Care Provider] - 1 Week Discharge Medications: New docusate sodium [Colace] 100 mg capsule 100 mg PO DAILY Qty: 30 RF: 0 Continued lisinopril 10 mg tablet 10 mg PO DAILY RF: 0 propranolol 20 mg tablet 20 mg PO BID RF: 0 gabapentin 300 mg capsule 300 mg PO BID RF: 0 tizanidine 4 mg tablet 4 mg PO BEDTIME RF: 0 cetirizine 10 mg tablet 10 mg PO BEDTIME RF: 0 topiramate 50 mg tablet 50 mg PO BID RF: 0 polyethylene glycol 3350 17 gram/dose powder 17 g PO DAILY PRN (Reason: Constipation) RF: 0 Discharge Orders: Discharge Order (Routine); Ordered 01/19/21 Ordered By: Neelima Bryant Diet: other Activity on Discharge: No heavy lifting Stand Alone Forms: Patient Portal Discharge page Activity Restrictions/Additional Instructions: Follow up as scheduled next week in office Discharge Instructions 1. Please call your doctor or come back to the emergency room should any new symptoms arise. 2. You will receive a courtesy call from [facility] 24-48 hours after discharge. 3. Activity: abstain from alcohol, practice limited stair climbing, no bending, no driving, no exercise, no illicit substances, no lifting, no sex, no tub bath, no work. 4. Diet: can resume normal diet, have small soft meals and chew well. 5. Dressing Change/Wound Care: Your incision is covered by surgical glue. If the area is tender, you may apply an ice pack for short intervals (no more than 20 minutes on, followed by at least 20 minutes off). Do not apply heat. Do not use creams, lotions, or topical antibiotics unless instructed to do so by your surgeon. These can cause infection or allergic reaction. 6. Call your doctor if: - Your temperature exceeds 101.5 F - You experience excessive pain or swelling - You have an unexpected reaction to medication - You have excessive bleeding - You experience continued vomiting/nausea - Your incision begins to separate - Your incision shows signs of infection such as increased redness, swelling, excessive pain, heat, or drainage (light blood or clear fluid is normal) 7. General instructions: - No lifting greater than 5 lbs for the next 4 weeks. - No driving within 24 hours of taking narcotic pain medications. - If you do not move your bowels in the next 2 days, please take milk of magnesia over the counter. Please follow the post op diet and do not advance your diet until you are seen in the office in about 2 weeks. - Please walk around your home every hour or two to prevent blood clots from forming in your legs. You do not need to wake from sleeping to walk. - Please sleep in a bed or couch to prevent kinking at the hips and knees. - Please take your incentive spirometer (your lung window shade estimator) home with you and use it for the next few days to prevent pneumonias. - You may shower, no hot tubs, baths or swimming pools. - Please call the office with any questions or concerns such as increasing abdominal pain, fever, chills, shortness of breath, chest pain, leg pain or swelling, or redness or drainage from your incisions. 8. Do not hesitate to contact the office with any questions at . Discharge Summary Date of Service: 01/19/21 Admitting Diagnosis: intermittent SBO, abdominal pain, s/p LRYGB Discharge Diagnosis: same, s/p diagnostic laparoscopy and internal hernia repair Procedure Performed: diagnostic laparoscopy and internal hernia repair Discharge Medications: 1. Colace 100 mg capsule (Si capsule twice a day for 30 days, #60, 2 RF) Hospital Course: The patient was admitted after undergoing lap internal hernia repair. Started on bariatric clears on POD #0. On POD #1 she felt much better, no abdominal pain, and was passing gas. Had taken in 800cc po liquids. She was started on regular diet POD #1 and tolerated well. The patient was discharged home. Discharge Disposition: Home. Care Plan Goals: resolution of intermittent abdominal pain Health Concerns: hx SBO s/p LRYGB Plan of Treatment: continued management at [facility] Assessment: doing well 1 day s/p laparoscopic internal hernia repair Discharge Date/Time: 01/19/21 14:13
[2021-01-18] MEDS: fentaNYL citrate/PF 100 MCG/2 ML VIAL 50 MCG IVPUSH (11:25)
--- NOTE | 2021-01-18 11:32 | PM.OP ---
Brief Operative Note Date of Service: 01/18/21 Pre-op diagnosis: Small-bowel obstruction Post-op diagnosis: other (Internal hernia with the entire small intestine herniated through the jejunojejunostomy mesenteric defect) Procedure: Diagnostic laparoscopy, reduction and repair of internal hernia with silk suture Implants: None Surgeon: Suad Cerna MD Anesthesia: GETA Estimated blood loss (mL): 5 Pathology: none sent Condition: stable Disposition: PACU
--- NOTE | 2021-01-18 11:38 | W.PM.OPN ---
Operative Note Operative Note Date of Service: 01/18/21 Narrative: Patient was brought into the operating room, placed on the operating room table in supine position. Normal DVT prophylaxis was instituted and patient received 2 g of IV cefotetan preoperatively. General anesthesia was induced. The abdomen was prepped and draped in the normal sterile fashion using ChloraPrep. Next a safety time-out was performed. Next a mixture of 1% lidocaine with epinephrine and 0.25% Marcaine plain was used to anesthetize the planned incision site in the left upper quadrant. A 11. Scalpel was used to make a small 5 mm transverse surgical incision in the left upper quadrant. A Veress needle was placed into the abdomen. Three pops were heard going through the fascia. A saline drop test was used to confirm that the Veress needle was intra-abdominal. The abdominal cavity was insufflated to 15 mm of mercury. Next an Optiview technique was used to place a 5 mm port in the patient's left upper quadrant. A 5 mm 30 degree laparoscopic was introduced into the abdomen in the abdominal cavity was surveyed. There was omentum adherent to a fascial defect in the lower midline. The muscle was intact across the abdomen at this point. We placed an additional 5 mm port in patient's left lateral mid abdomen under direct vision. We then used a LigaSure device to take down the adhesions. We then retracted the omentum up into the upper abdomen. I placed 1 additional 5 mm port in the patient's left lower quadrant medially. We then found the cecum and the terminal ileum and ran the terminal ileum proximally. We noted right away that there was a large internal hernia with all of the small intestine up to the ileocecal valve herniated through the jejunojejunostomy mesenteric defect. We reduced the small bowel by pulling it out of the mesenteric defect until we were at the level of the jejunojejunostomy. I then ran the bowel back proximally to the Reyna limb and to the area where the Reyna limb went retrocolic. I then ran the biliopancreatic limb back to the ligament of Treitz. There were no other defects. The defect the jejunojejunostomy was then closed with a running 2 0 silk suture and a laparoscopic needle route salesman and driver. There was no residual mesenteric defect. I then ran the Reyna limb the biliary pancreatic limb and the common channel again and there was no evidence of bowel obstruction. Of note there was mild dilation of the bili 0 pancreatic limb and the Reyna limb without any evidence of ischemia. The common channel was completely decompressed. We then removed the 5 mm port from the left lower quadrant and left mid lateral abdomen under direct vision there was no bleeding noted from these port sites. We then desufflated the abdomen through the last remaining port and removed the last port laparoscopic. We reapproximated all skin incisions with a 4-0 Monocryl subcuticular stitch. We cleaned and dried the skin and applied Dermabond skin glue to all skin incisions. All counts were correct at the end of the case there were no complications. The patient was awake and in stable condition prior to extubation and transfer to the recover room.
--- NOTE | 2021-01-18 12:45 | MHC.CM.PN ---
met with pt who was just back from surgery pt explains that she has no services prior to admissions she is interdependent she does not feel she will need servcies when dcd her will transport home
[2021-01-18] MEDS: 0.9 % Sodium Chloride Flush 3 ML SYRINGE IVFLUSH (15:23)
[2021-01-18] MEDS: lisinopriL 10 MG TABLET PO (17:14)
[2021-01-18] MEDS: Gabapentin 100 MG CAPSULE 200 MG PO (20:55)
[2021-01-18] MEDS: Propranolol HCL 20 MG TABLET PO (20:55)
[2021-01-19] MEDS: Lactated Ringers 1,000 ML 125 ML IVCONT (02:16)
[2021-01-19] MEDS: ondansetron HCL 4 MG/2 ML VIAL IVPUSH ×2 (02:17→08:32)
[2021-01-19 03:19] VITALS: BP 127/73; PULSE 54; RESP 18; TEMP 36.9; O2SAT 100
[2021-01-19 06:15] LABS: Basophils Percent Auto 0.2 % (0-2); Imm Gran Abs Auto 0.01 X10*3/uL (0.00-0.03); Imm Gran Pct Auto 0.2 % (0.0-0.4); Mean Platelet Volume 11.5 fL (9.4-12.3); PLT CLUMP 1; SCAN SMEAR FLAG 1
[2021-01-19 06:16] LABS: Eosinophils Absolute Auto 0.1 X10*3/uL (0.0-0.4); Hematocrit 30.1 % (37-47); Hemoglobin 9.4 g/dl (12.0-16.0); Lymphocytes Absolute Auto 1.4 X10*3/uL (1.2-4.9); Lymphocytes Percent Auto 30.2 % (20-40); Mean Corpuscular HGB Conc 31.2 g/dl (31.0-35.0); Mean Corpuscular Hemoglobin 30.3 pg (27.0-33.0); Mean Corpuscular Volume 97.1 fL (80-98); Monocytes Absolute Auto 0.3 X10*3/uL (0.1-1.2); Monocytes Percent Auto 6.2 % (2-11); Neutrophils Absolute Auto 2.8 X10*3/uL (2.0-8.3); Neutrophils Percent Auto 61.2 % (45-73); Platelet Count 113 X10*3/uL (160-400); White Blood Count 4.5 X10*3/uL (4.8-10.8)
[2021-01-19 06:20] LABS: MANUAL DIFF FLAG NO
[2021-01-19 06:33] LABS: Anion Gap 14 (12-20); Blood Urea Nitrogen 16 mg/dL (9-16); Calcium 8.5 mg/dL (8.4-10.2); Carbon Dioxide 23 mmol/L (22-29); Chloride 111 mmol/L (96-108); Creatinine Clr Calc Pharmacy 62.6; Estimated Glomerular Filt Rate 53; Glucose Random 88 mg/dL (60-115); Potassium 4.5 mmol/L (3.3-5.1); Sodium 143 mmol/L (135-145)
[2021-01-19 07:24] VITALS: BP 122/76; PULSE 52; RESP 16; TEMP 36.4; O2SAT 99
[2021-01-19 08:29] VITALS: BP 122/76; PULSE 52
[2021-01-19] MEDS: lisinopriL 10 MG TABLET PO (08:29)
[2021-01-19 08:30] VITALS: BP 122/76; PULSE 62
[2021-01-19] MEDS: Gabapentin 100 MG CAPSULE 200 MG PO (08:30)
[2021-01-19] MEDS: Propranolol HCL 20 MG TABLET PO (08:30)
[2021-01-19] MEDS: Pantoprazole Sodium 40 MG/10 ML VIAL IVPUSH (08:32)
--- NOTE | 2021-01-19 13:46 | MHC.CM.PN ---
Patient has been medically cleared for dc to home today, no services.
--- NOTE | 2021-01-20 13:19 | HO.POSTANES ---
Post Anesthesia Evaluation Post Anesthesia Evaluation Anesthesia: General Endotracheal-GETA Mental Status: Awake Pain Control: Satisfactory Nausea/Vomiting: None Hydration: Adequate Anesthesia-Related Issues: No Anes. Related Issues
== END 2021-01-19 14:13 | disposition home or self-care (01) | DRG 227 ==
LOC: HO.ED 04:38 → HO.IMC 05:05
PROVIDERS: Physician Assistant; Surgery; Admitting Provider Physician Assistant; Emergency Provider Emergency Medicine; PCP Dietitian, Registered; Visit Provider Physician Assistant
PROC: 0WQF4ZZ Repair Abdominal Wall, Percutaneous Endoscopic Approach (ICD-10-PCS; CPT 49320; principal; 2021-01-18 10:00)
DX: K45.0 Other specified abdominal hernia with obstruction, without gangrene (principal); Z20.822 Contact with and (suspected) exposure to COVID-19; Z98.84 Bariatric surgery status; Z79.899 Other long term (current) drug therapy
CPT/HCPCS: 36415; 80048; 80076; 83605; 85025; 85610; 85730; 86850; 86900; 86901; 87635; 93005; 99285; J0131; J1170; J2250; J2405; J3010

== ENCOUNTER → 2021-02-08 10:47 | Outpatient (BNVA) | payer BC, SELFPAY | PROVIDERS: Visit Provider Surgery ==

== ENCOUNTER → 2021-04-15 14:38 | Outpatient (BNVA) | payer BC, SELFPAY | PROVIDERS: Visit Provider Surgery | DX: Z01.818 Encounter for other preprocedural examination (principal); K91.2 Postsurgical malabsorption, not elsewhere classified; Z90.3 Acquired absence of stomach [part of] ==

== ENCOUNTER → 2021-06-24 13:32 | Outpatient (BNVA) | payer BC, SELFPAY | PROVIDERS: Visit Provider Dietitian, Registered | DX: E66.3 Overweight (principal); Z68.28 Body mass index [BMI] 28.0-28.9, adult | CPT/HCPCS: 97803 ==

== ENCOUNTER → 2021-08-21 07:59 | Outpatient (BNVA) | payer BC, SELFPAY | PROVIDERS: Visit Provider Physician Assistant Surgical ==